=== PATIENT | female | born 2000 | race Caucasian/White ===

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

== ENCOUNTER 2019-05-14 02:34 | Emergency (ER) | payer MEDICAID, OTHER ==
[~2019-05-14] VITALS: Ht 165.1 cm; Wt 68.0 kg
--- NOTE | 2019-05-14 02:45 | NUR ---
BIB FROM STREET TO ER BED 14. AAOX4. NO RESP DISTRESS. AMBULATORY. C/O "NOT FEELING WELL. NEED HELP WITH MENTAL ISSUE". PT IS NOTED ANXIOUS. SHE VERBALIZED THAT SHE NEEDS HELP WITH MEDICATION MANAGEMENT AND SHE IS OF OF MEDICATIONS. PT DENIES SI AND HI. AWAITING MD FOR EVAL.
[2019-05-14] MEDS ORDERED: LORAZEPAM 1 MG TABLET PO ONE (03:00)
[2019-05-14] MEDS ORDERED: LORAZEPAM 1 MG TABLET ONE (03:05)
--- NOTE | 2019-05-14 04:22 | NUR ---
Patient is resting comfortably in bed with eyes closed. Easily aroused. VSS
--- NOTE | 2019-05-14 06:07 | NUR ---
Patient is resting comfortably in bed with eyes closed. Easily aroused.
[2019-05-14 07:05] VITALS: BP 119/68
--- NOTE | 2019-05-14 07:46 | NUR ---
REPORT GIVEN TO [facility] FOR [facility]
--- NOTE | 2019-05-14 07:50 | NUR ---
PATIENT A/OX4, AMBULATORY WITH STEADY GAIT, DENIES SI AND HI, WAITING FOR MARKETING DATABASE ANALYST. NEEDS ATTENDED.
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
== END 2019-05-14 08:20 | disposition left against medical advice (07) ==
LOC: ER 02:36
DX: F41.9 Anxiety disorder, unspecified (principal); F29 Unspecified psychosis not due to a substance or known physiological condition; F32.9 Major depressive disorder, single episode, unspecified; Z59.0 Homelessness

== ENCOUNTER → 2019-12-12 | Emergency (ER) | payer OTHER ==
[~2019-12-12] VITALS: Ht 165.1 cm; Wt 68.9 kg
--- NOTE | 2019-12-12 22:05 | NUR ---
CALLED PT IN [place] X3. NO ONE RESPONDED. WILL FOLLOW UP
--- NOTE | 2019-12-12 22:30 | NUR ---
URINE COLLECTED. SENT TO LAB
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
--- NOTE | 2019-12-12 22:46 | NUR ---
PT REFUSED BLOOD DRAW. RISK AND BENEFITS EXPLAINED X3. DR. JUAN ANTONIO HARTMANN
--- NOTE | 2019-12-12 22:55 | NUR ---
PT IS UNCOOPERATIVE AND NON COMPLIANT. DOES NOT WANT TO TALK TO NURSE.
--- NOTE | 2019-12-12 22:55 | NUR ---
Grover mitchell in [facility] - 12/12/19 at 2321 by WILLIAMS PT IS UNCOOPERATIVE AND COMPLIANT. DOES NOT WANT TO TALK TO NURSE.
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
--- NOTE | 2019-12-12 23:05 | NUR ---
NURSING ENGINEERING ADMINISTRATOR NEVAEH MADE AWARE OF INCIDENT.
[2019-12-12 23:08] LABS: BILIRUBIN,URINE NEGATIVE (NEGATIVE); BLOOD, URINE NEGATIVE Ery/uL (NEGATIVE); COLOR,URINE YELLOW (YELLOW); KETONES,URINE NEGATIVE (NEGATIVE); LEUKOCYTE ESTERASE ,URINE SMALL (NEGATIVE); NITRITE, URINE NEGATIVE (NEGATIVE); PROTEIN,URINE NEGATIVE (NEGATIVE); UGLUCOSE NEGATIVE (NEGATIVE); UROBILINOGEN,URINE 0.2 EU/dL (0.2)
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
[2019-12-12 23:20] LABS: APPEARANCE,URINE HAZY (CLEAR)
[2019-12-12 23:27] LABS: RBC,URINE 0-2 /HPF (0-2)
[2019-12-12 23:28] LABS: BACTERIA,URINE None seen /HPF (None Seen); SQUAMOUS EPITHELIAL CELL,UR Many /HPF (None Seen)
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
--- NOTE | 2019-12-13 00:42 | NUR ---
PT ASLEEP, IN BED COMFORTABLY.
--- NOTE | 2019-12-13 02:48 | NUR ---
Patient is resting comfortably in bed with eyes closed. Easily aroused. VSS.
--- NOTE | 2019-12-13 03:27 | NUR ---
PT PROVIDED WITH MORE BLANKETS.
--- NOTE | 2019-12-13 07:15 | NUR ---
Patient is resting comfortably in bed with eyes closed. Easily aroused. VSS.
--- NOTE | 2019-12-13 07:45 | NUR ---
Assumed care report given by Jessica LEE per report patient is difficult non cooperate to staff . During my rounds patient awake no eye contact sitter @ bedside cooperative @ this time able to draw blood obtained heplock LAC 20 G and secure
--- NOTE | 2019-12-13 07:48 | NUR ---
Recieved patient on wrist restraint Off @ this time patient requesting for food breakfast .
[2019-12-13 07:52] LABS: BASOPHILS % (AUTO) 0.5 % (0.0-2.0); EOSINOPHILS % (AUTO) 1.8 % (0.0-6.0); HEMATOCRIT 33 % (33-45); HEMOGLOBIN 11.3 g/dL (11.5-14.8); LYMPHOCYTES # (AUTO) 2.4 /CMM (0.8-4.8); LYMPHOCYTES % (AUTO) 38.5 % (20.0-44.0); MEAN CORPUSCULAR HGB CONC 35 g/dl (31.0-36.0); MEAN CORPUSCULAR VOLUME 93 fL (82-100); MONOCYTES # (AUTO) 0.5 /CMM (0.1-1.30); MONOCYTES % (AUTO) 7.9 % (2.0-12.0); NEUTROPHILS # (AUTO) 3.2 /CMM (1.8-8.9); NEUTROPHILS % (AUTO) 51.3 % (43.0-81.0); PLATELET COUNT (AUTO) 184 /CMM (150-450); RED BLOOD CELL COUNT(AUTO) 3.52 MIL/uL (4.0-5.2); WHITE BLOOD COUNT (AUTO) 6.2 K/uL (4.3-11.0)
[2019-12-13 08:14] LABS: CARBON DIOXIDE 25 mmol/L (21-32); CHLORIDE 105 mmol/L (98-107); CREATININE 0.5 mg/dL (0.6-1.3); GLUCOSE 82 mg/dL (74-106); POTASSIUM 3.9 mmol/L (3.5-5.1); SODIUM SERUM 140 mmol/L (136-145); UREA NITROGEN, BLOOD 3 mg/dL (7-18)
[2019-12-13 08:48] LABS: ACETAMINOPHEN 0 ug/ml (10-30); ALANINE AMINOTRANSFERASE 12 U/L (12-78); ALBUMIN 2.6 g/dL (3.4-5.0); ALCOHOL, BLOOD < 3 mg/dL (0-0); ALKALINE PHOSPHATASE 45 U/L (46-116); ASPARTATE AMINOTRANSFERASE 11 U/L (15-37); BILIRUBIN,TOTAL 0.1 mg/dL (0.2-1.0); TOTAL PROTEIN, SERUM 6.1 g/dL (6.4-8.2)
[2019-12-13 08:51] LABS: SALICYLATE 1.2 mg/dL (2.8-20.0)
--- NOTE | 2019-12-13 09:29 | NUR ---
Patient asllep but arousable vital taken and filed sitter @ bedside continmue to monitor .
--- NOTE | 2019-12-13 09:40 | NUR ---
[facility] [phone]
--- NOTE | 2019-12-13 11:02 | NUR ---
Erin HDZW aware of pt "will be there w/in the hour"
--- NOTE | 2019-12-13 12:52 | NUR ---
TRACE RN [employer] POL[employer] OFFICER AT BEDSIDE FOR EVAL.
--- NOTE | 2019-12-13 13:16 | NUR ---
Patient awake alert noted seen by Psych ok to DC home .
--- NOTE | 2019-12-13 13:23 | NUR ---
Patient Dc home instruction given agrees to see PMD in 2 days verbalized understnding removed heplock LAC noted cath intact no edema no pain .
--- NOTE | 2019-12-13 13:24 | NUR ---
Declined long-term
[2019-12-13 13:31] VITALS: BP 123/67
== END | disposition home or self-care (01) ==
LOC: ER 22:02
DX: O99.342 Other mental disorders complicating pregnancy, second trimester (principal); R45.851 Suicidal ideations; F32.9 Major depressive disorder, single episode, unspecified; F41.9 Anxiety disorder, unspecified; Z59.0 Homelessness; Z3A.22 22 weeks gestation of pregnancy
CPT/HCPCS: 36415; 80048; 80076; 80305; 80307; 80329; 81001; 84702; 84703; 85025; 99285; G0480; 81000-TC

== ENCOUNTER 2020-04-11 08:15 | Emergency (ER) | payer OTHER ==
[~2020-04-11] VITALS: Ht 167.6 cm; Wt 68.0 kg
[2020-04-11 08:20] VITALS: BP 130/98
[2020-04-11 09:06] LABS: BASOPHILS % (AUTO) 0.5 % (0.0-2.0); EOSINOPHILS % (AUTO) 0.9 % (0.0-6.0); HEMATOCRIT 34 % (33-45); HEMOGLOBIN 11.2 g/dL (11.5-14.8); LYMPHOCYTES # (AUTO) 1.5 /CMM (0.8-4.8); LYMPHOCYTES % (AUTO) 18.6 % (20.0-44.0); MEAN CORPUSCULAR HGB CONC 33 g/dl (31.0-36.0); MEAN CORPUSCULAR VOLUME 90 fL (82-100); MONOCYTES # (AUTO) 0.3 /CMM (0.1-1.30); MONOCYTES % (AUTO) 4.4 % (2.0-12.0); NEUTROPHILS % (AUTO) 75.6 % (43.0-81.0); PLATELET COUNT (AUTO) 243 /CMM (150-450); RED BLOOD CELL COUNT(AUTO) 3.83 MIL/uL (4.0-5.2); WHITE BLOOD COUNT (AUTO) 7.9 K/uL (4.3-11.0)
[2020-04-11 09:19] LABS: CALCIUM, SERUM 8.8 mg/dL (8.5-10.1); CARBON DIOXIDE 24 mmol/L (21-32); CHLORIDE 103 mmol/L (98-107); CREATININE 0.6 mg/dL (0.6-1.3); GLUCOSE 96 mg/dL (74-106); POTASSIUM 4.1 mmol/L (3.5-5.1); SODIUM SERUM 140 mmol/L (136-145); UREA NITROGEN, BLOOD 10 mg/dL (7-18)
[2020-04-11 09:26] LABS: ALANINE AMINOTRANSFERASE 67 U/L (12-78); ALCOHOL, BLOOD < 3 mg/dL (0-0); ALKALINE PHOSPHATASE 123 U/L (46-116); ASPARTATE AMINOTRANSFERASE 20 U/L (15-37); BILIRUBIN,DIRECT 0.1 mg/dL (0.0-0.2); BILIRUBIN,TOTAL 0.2 mg/dL (0.2-1.0); TOTAL PROTEIN, SERUM 7.8 g/dL (6.4-8.2)
[2020-04-11 09:29] LABS: ACETAMINOPHEN 0 ug/ml (10-30)
--- NOTE | 2020-04-11 09:47 | NUR ---
LAB CALLED COVID RESULT NEGATIVE (-)
--- NOTE | 2020-04-11 10:06 | NUR ---
Patient discharged to home in stable condition. Written and verbal after care instructions given. Patient verbalizes understanding of instruction.
== END 2020-04-11 10:06 | disposition home or self-care (01) ==
LOC: ER 08:19
DX: F15.10 Other stimulant abuse, uncomplicated (principal); R68.83 Chills (without fever); Z59.0 Homelessness; Z86.19 Personal history of other infectious and parasitic diseases; Z20.822 Contact with and (suspected) exposure to COVID-19
CPT/HCPCS: 36415; 80048; 80076; 80299; 80320; 85025; 87426; 99283; C9803; G0480

== ENCOUNTER 2020-04-11 16:47 | Emergency (ER) | payer OTHER ==
[~2020-04-11] VITALS: Ht 167.6 cm; Wt 68.0 kg
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
--- NOTE | 2020-04-11 17:52 | NUR ---
CALLED PINKY, ON HER WAY.
[2020-04-11 17:58] LABS: BILIRUBIN,URINE Negative (NEGATIVE); COLOR,URINE YELLOW (YELLOW); LEUKOCYTE ESTERASE ,URINE Small (NEGATIVE); NITRITE, URINE Negative (NEGATIVE); PH,URINE 6.5 (5.0-8.0); PROTEIN,URINE 100 mg/dl (NEGATIVE); UGLUCOSE Negative (NEGATIVE)
[2020-04-11 18:00] LABS: BACTERIA,URINE 1+ /HPF (None Seen); SQUAMOUS EPITHELIAL CELL,UR Few /HPF (None Seen)
[2020-04-11] MEDS ORDERED: CEPHALEXIN MONOHYDRATE 500 MG CAPSULE PO ONE ×2 (18:30→19:17)
[2020-04-11] MEDS ORDERED: OLANZAPINE 5 MG TABLET PO ONE (18:30)
[2020-04-11] MEDS ORDERED: OLANZAPINE 5 MG TABLET ONE (19:17)
--- NOTE | 2020-04-11 19:26 | NUR ---
patient refused oral antibiotic keflex for UTI and MD waqas at bedside and explained the risk and benefits x 3 and still patient refused.
--- NOTE | 2020-04-11 19:38 | NUR ---
patient refused reji OSSA notified and aware.
[2020-04-11] MEDS ORDERED: OLANZAPINE 10 MG VIAL IM ONE ×2 (19:50→20:00)
[2020-04-11] MEDS ORDERED: LORAZEPAM INJ 2 MG/ML VIAL ONE (19:51)
[2020-04-11] MEDS ORDERED: LORAZEPAM INJ 2 MG/ML VIAL IM ONE (20:00)
--- NOTE | 2020-04-11 21:20 | NUR ---
TRANSFER INFORMATION: PT ACCEPTED TO [facility] ACCEPTING MD: DR. VÁZQUEZ BED ASSIGNMENT 141-[id number] NUMBER FOR REPORT: [phone]
--- NOTE | 2020-04-11 21:27 | NUR ---
REPORT GIVEN TO JESUS CHENEY FROM [facility] FOR [facility]
--- NOTE | 2020-04-11 21:42 | NUR ---
CALLED CALL THE CAR FOR TRANSPORTATION, WILL CALL BACK WITH ETA. RESERVATION #[id number]
--- NOTE | 2020-04-11 22:09 | NUR ---
[facility] ETA [id number]
[2020-04-12 01:10] VITALS: BP 112/90
--- NOTE | 2020-04-12 01:15 | NUR ---
[facility] CONDITION. ALL BELONGINGS PICKED UP BY THE PT.
== END 2020-04-12 01:31 ==
LOC: ER 16:49
DX: O99.345 Other mental disorders complicating the puerperium (principal); O86.20 Urinary tract infection following delivery, unspecified; R45.851 Suicidal ideations; F15.10 Other stimulant abuse, uncomplicated; R45.86 Emotional lability; D64.9 Anemia, unspecified; R74.8 Abnormal levels of other serum enzymes; R00.0 Tachycardia, unspecified; Z60.2 Problems related to living alone; Z04.6 Encounter for general psychiatric examination, requested by authority; Z37.0 Single live birth
CPT/HCPCS: 80307; 81001; 84703; 87086; 96372 ×2; 99285; J2060; J3490